=== PATIENT | female | born 1940 | race African-American/Black ===

== ENCOUNTER 2017-11-14 14:14 | Emergency (ER) | payer OTHER ==
[~2017-11-14] VITALS: Ht 165.1 cm; Wt 63.5 kg
[~2017-11-14 14:14] MED LIST: AMARYL2 MG; ATORVASTATIN CA10 MG; CARVEDILOL25 MG; CIPROFLOXACIN500 M1 PO; COZAAR100 MG; FLAGYL500 MG PO; NORCO 5-325 TA1 EACH PO; PHENERGAN 25 MG25 M1 PO; PHENERGAN50 MG RC; VESICARE10 M1
[2017-11-14] MEDS ORDERED: TESSALON PERLE100 MG PO (15:23)
[2017-11-14] MEDS ORDERED: AZITHROMYCIN 2250 MG PO (15:23)
== END 2017-11-14 15:36 | disposition home or self-care (01) ==
LOC: ER 14:14
DX: J18.9 Pneumonia, unspecified organism (principal); I10 Essential (primary) hypertension; E11.9 Type 2 diabetes mellitus without complications; F17.200 Nicotine dependence, unspecified, uncomplicated; Z90.710 Acquired absence of both cervix and uterus

== ENCOUNTER 2020-09-30 13:43 | Emergency (ER) | payer OTHER ==
[~2020-09-30] VITALS: Ht 165.1 cm; Wt 77.1 kg
[~2020-09-30 13:43] MED LIST changes: +AZITHROMYCIN 2250 MG PO; +TESSALON PERLE100 MG PO
[2020-09-30] MEDS ORDERED: MAGIC MOUTHWASH SWISH&SPIT (14:41)
[2020-09-30 14:58] VITALS: BP 183/68
== END 2020-09-30 15:10 | disposition home or self-care (01) ==
LOC: ER 13:43
DX: K13.79 Other lesions of oral mucosa (principal); I10 Essential (primary) hypertension; E11.9 Type 2 diabetes mellitus without complications; F17.220 Nicotine dependence, chewing tobacco, uncomplicated; Z86.73 Personal history of transient ischemic attack (TIA), and cerebral infarction without residual deficits; Z90.710 Acquired absence of both cervix and uterus; Z79.899 Other long term (current) drug therapy

== ENCOUNTER 2020-11-09 18:45 | Inpatient (IN) | payer OTHER ==
[~2020-11-09] VITALS: Ht 160 cm; Wt 77.6 kg
--- NOTE | ~2020-11-09 | EEG ---
[facility] [address] [place] [address] ELECTROENCEPHALOGRAM Name: LEONA VÁSQUEZ Room #: 217-P [facility] IN M.R.#: [id number] Admission: 11/09/20 Attend Phys: Patrice Hendrickson MD Discharge: Date of : 44 Report #: [id number] THIS REPORT FOR: //name// DATE OF SERVICE: 11/10/2020 This patient's EEG was done by placing the electrodes by standard 10-20 system of electrode placement. Both referential and sequential montages were used for recording. Background activity in this patient's EEG is difficult to determine because lot of artifact is present, but it appeared to be about 8-9 Hz and 30 microvolt. Photic stimulation is unremarkable. The patient became drowsy that is associated with bilateral slowing and vertex sharp waves. Throughout the record, no active epileptiform activity was noticed. IMPRESSION: This patient's EEG is intermixed with theta range slowing on both sides. That is a nonspecific finding, which can occur with encephalopathy, effect of psychotropic medication, dementia, etc. No active epileptiform activity was noticed during this record. EEG has a lot of artifact and therefore, impression is tentative as the patient is not able to cooperate. Thank you very much for this referral. By: [id number] José Miguel Stark MD /nt
[~2020-11-09 18:45] MED LIST changes: -AMARYL2 MG; +AMARYL2 MG PO; -ATORVASTATIN CA10 MG; +ATORVASTATIN CA10 MG PO; -COZAAR100 MG; +COZAAR100 MG PO; +MAGIC MOUTHWASH SWISH&SPIT
[2020-11-09 18:49] VITALS: BP 166/58
[2020-11-09] MEDS ORDERED: NORVASC 2.5 MG2.5 M1 PO (19:50)
[2020-11-09] MEDS ORDERED: MYRBETRIQ50 MG PO (19:51)
[2020-11-09] MEDS ORDERED: PROTONIX40 M2 PO (19:52)
[2020-11-09] MEDS ORDERED: HYDROCHLOROTHIA25 M2 PO (19:52)
[2020-11-09] MEDS ORDERED: GABAPENTIN (19:53)
[2020-11-09] MEDS ORDERED: TIZANIDINE HCL4 M1 PO (19:55)
[2020-11-09 20:51] LABS: ABSOLUTE NEUTROPHILS 4.4 thou/uL (1.4-8.2); BASOPHILS 1.1 % (0.0-2.0); EOSINOPHILS 2.3 % (0.0-3.0); HEMATOCRIT 28.1 % (37.0-47.0); LYMPHOCYTES 22.2 % (24.0-44.0); MCH 25.6 pg (26.0-34.0); MCHC 32.1 g/dL (28.0-37.0); MCV 79.7 fL (80.0-100.0); MONOCYTES 7.8 % (1.0-8.0); PLATELET COUNT 269 thou/uL (150-400); POLYS 66.6 % (36.0-66.0); RBC 3.52 mil/uL (4.20-5.00); RDW 13.6 % (10.5-14.5); WBC 6.7 thou/uL (4.0-11.0)
[2020-11-09 21:01] LABS: ANION GAP 9 mmol/L (7-16); BUN 26 mg/dL (7-18); CALCIUM 9.5 mg/dL (8.5-10.1); CHLORIDE 109 mmol/L (98-107); CO2 26 mmol/L (21-32); CREATININE 1.4 mg/dL (0.6-1.0); GLUCOSE 164 mg/dL (74-106); POTASSIUM 4.3 mmol/L (3.5-5.1); SODIUM 144 mmol/L (136-145)
[2020-11-09 21:07] LABS: PROTIME 10.6 Seconds (9.3-11.4)
[2020-11-09 21:11] LABS: TROPONIN-I <0.06 ng/mL (<0.06)
[2020-11-09 21:39] LABS: URINE BILIRUBIN NEGATIVE (Negative); URINE BLOOD NEGATIVE (Negative); URINE CLARITY CLEAR; URINE COLOR YELLOW; URINE GLUCOSE-RANDOM* NEGATIVE (Negative); URINE KETONES NEGATIVE (Negative); URINE LEUKOCYTES-REFLEX NEGATIVE (Negative); URINE NITRITE-REFLEX NEGATIVE (Negative); URINE PROTEIN (DIPSTICK) NEGATIVE (Negative); URINE SPECIFIC GRAVITY 1.025 (1.005-1.035); URINE UROBILINOGEN 0.2 E.U./dl (0.2-1.0)
[2020-11-10 06:09] LABS: HEMATOCRIT 26.4 % (37.0-47.0); HEMOGLOBIN 8.3 gm/dL (12.0-15.0); MCH 25.1 pg (26.0-34.0); MCHC 31.6 g/dL (28.0-37.0); MCV 79.5 fL (80.0-100.0); RBC 3.32 mil/uL (4.20-5.00); RDW 13.4 % (10.5-14.5); WBC 5.4 thou/uL (4.0-11.0)
[2020-11-10 06:32] LABS: ANION GAP 7 mmol/L (7-16); BUN 19 mg/dL (7-18); CALCIUM 9.1 mg/dL (8.5-10.1); CHLORIDE 109 mmol/L (98-107); CHOLESTEROL 158 mg/dL (<200); CO2 26 mmol/L (21-32); CREATININE 1.3 mg/dL (0.6-1.0); GLUCOSE 193 mg/dL (74-106); HDL CHOLESTEROL 59 mg/dL (>40); LDL CHOLESTEROL 84 mg/dL (<100); SERUM ASSESSMENT Clear; SODIUM 142 mmol/L (136-145); TC:HDL 2.7 Ratio (Not establshd); TRIGLYCERIDE 75 mg/dL (<150); VLDL 15 mg/dL (<40)
--- NOTE | 2020-11-10 07:17 | EKG ---
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: : 1940 Requested By: Diane Sullivan Order Number: [id number] : Derrick Henderson Measurements Intervals [place] Rate: 61 P: 54 OR: 240 QRS: -24 QRSD: 92 T: 87 QT: 446 QTc: 450 Interpretive Statements Sinus rhythm Prolonged OR interval Borderline left axis deviation No previous ECG available for comparison Electronically Signed On 11-10-2020 7:16:59 COUNTY AGENT by Derrick Henderson [email or web address] <ELECTRONICALLY SIGNED> By: Derrick Henderson MD, [facility] 11/10/20 0716 1927 26 Derrick Henderson MD, FACC /EPI
--- NOTE | 2020-11-10 08:00 | NUR ---
SPOKE WITH DAUGHTER ROSEANN AND CONFIRMED INFORMATION FOR MRI MAHAMED
--- NOTE | 2020-11-10 09:49 | NUR ---
RETURNED FROM MRI, DRAFTER MARINE AT BEDSIDE TO PERFORM TEST
--- NOTE | 2020-11-10 10:56 | NUR ---
PT ASSISTED TO BEDSIDE COMMODE WITH STB ASSIST. PT ABLE TO USE OWN STRENGTH TO RETURN TO AMBUALTE TO BSC & RETURN TO BED.
--- NOTE | 2020-11-10 14:30 | NUR ---
PT GOT SELF OUT OF BED, DRESSED SELF COMPLETELY AND TOOK IV ACCESS OUT. DAUGHTER ARRIVED AT BEDSIDE. PT STATES SHE IS NOT STAYING. VERBAL RE-DIRECTION BY STAFF AND DAUGHTER CALM. BUT WILL NOT EAT OR GET INTO HOSPITAL GOWN.
--- NOTE | 2020-11-10 14:58 | NUR ---
80 year old female with a past medical history of stroke, hypertension, hyperlipidemia, and diabetes type 2 presents to the ED with BLE weakness. She was assessed to be Alert x1, aphasic with slurred speech and eft facial droop. The patient has been admitted to the hospitalist service with consult to neurology for above reason as well as LIVE, Metabolic encephalopathy verses current admitting symptoms, Right arm pain/weakness, DMI!, hx of stroke HTN, HLD and Anemia with Hgb of 9.0. MRA-[place] [facility] [place], MRI Head, XR shoulder, XR chest and CT without contrast did not reveal acute issue (s). The patient is assessed in the record as A&O x1 . The patients Nephew is listed as next of kin at [phone]. However the patient's daughter accompanied patient in the ED. The daughter's information is Juanita Escobedo and her number is [phone]: The daughter states the patient [place] [facility] [place] [address] [facility]. Introduced the role of CM to daughter, daughter expressed need that patient may need SNF to LTC services upon discharge. Explained to daughter upon medical assessments along with therapy evaluations, CM will be in touch for discharge planning needs. Daughter reiterated that she was the direct contact and next of kin. Have notified Registration for correction to the face sheet.
--- NOTE | 2020-11-10 15:15 | NUR ---
DAUGHTER LEFT, PT SITTING IN ROOM CHAIR, DRESSED. DR JIMÉNEZ RETURNED CALL IN REGARDS TO BEHAVIOR REFUSING IV, REFUSING MONITORS, BP. STATES WILL LOOK AT CHART AND RE-ASSESS
[2020-11-10 17:07] VITALS: BP 176/68
[2020-11-10 17:30] VITALS: BP 176/68
[2020-11-10 18:00] VITALS: BP 188/56
[2020-11-10 18:20] VITALS: BP 188/56
[2020-11-10 19:15] VITALS: BP 167/65
--- NOTE | 2020-11-10 20:06 | NUR ---
PT CARE ASSUMED AT 1800. ASSESSMENTS CHARTED. PT HAS NO IV AND REFUSES PLACEMENT. PT IS VERY PARANOID. PT REFUSES FOOD. PT ATTEMPTED ELOPEMENT IN TRANSFER FROM ER TO CCU. SECURITY ASSISTED. POOR HISTORIAN, WILL NOT VOLUNTEER INFORMATION EASILY. CALLED PT'S DAUGHTER, NO ANSWER.
[2020-11-11 00:06] LABS: GLYCOHEMOGLOBIN (HGB A1C) 7.3 % (4.8-5.6)
[2020-11-11 03:22] VITALS: BP 149/73
--- NOTE | 2020-11-11 07:19 | EKG ---
[address] [place] [address] ELECTROCARDIOGRAM REPORT Name: DAWN VÁSQUEZJAYLIN Petit Room #: 217- ADM IN M.R.#: [id number] Admission: 11/09/20 Attend Phys: Patrice Hendrickson MD Discharge: Date of : 44 Report #: [id number] [facility] Test Date: 2020-11-11 Test Time: 03:31:29 Pat Name: LEONA VÁSQUEZ Department: Room: 217 Gender: F Application Helper: CHERYL : 1940 Requested By: Shital Parker Order Number: [id number] MD: Derrick Henderson Measurements Intervals [place] Rate: 74 P: -27 UT: 387 QRS: -13 QRSD: 93 T: 87 QT: 384 QTc: 426 Interpretive Statements Second degree AV block, Mobitz II Borderline low voltage, extremity leads Compared to ECG 11/09/2020 19:27:40 Second-degree AV block, Mobitz type I (Wenckebach) now present Sinus rhythm no longer present First degree AV block no longer present Electronically Signed On 11-11-2020 7:18:50 [employer]ID [employer] PLANT OPERATOR by Derrick Henderson [email or web address] <ELECTRONICALLY SIGNED> By: Derrick Henderson MD, [facility] 11/11/20 0718 033 0 Derrick Henderson MD, [facility] /EPI
--- NOTE | 2020-11-11 07:22 | NUR ---
ADMITTED TO THE FLOOR AROUND 11/11 AROUND 1800; EDUCATED ON FALL PRECAUTIONS; ALERT/CONFUSED; ASSIST TO BSC WITH BRIEF D/T URINARY URGENCY; ST/SB/SR/1AVB ON THE MONITOR; EKG COMPLETED WITH RESULT 2AVB, TYPE II D/T EXTREME MARVIN TO THE 30s; IV RESTARTED IN LEFT HAND D/T PATIENT D/C OF IV; PLAN IS FOR CARDIO CONSULT AND POSSIBLE D/C TO SNF D/T POSSIBLE ONSET OF DEMENTIA; WILL CONTINUE TO MONITOR.
[2020-11-11 08:10] VITALS: BP 141/66
[2020-11-11 11:21] VITALS: BP 141/66
--- NOTE | 2020-11-11 11:30 | NUR ---
Case discussed with the care team. Pt did well with therapy. Dc planning options reivewed with dtr in law Juanita. She indicates family is going to take the pt home with them this afternoon so she will have 24hr supervision. They are interested in info on memory care units/ltc for future reference but do not wish to pursue placement at this time. Pt alert and pleasant this morning. Wanting to go home. Juanita will be here at around 3:30 today and bringing in a dpoa document should the pt wish to have it notorized. Ruben Campoverde here to visit with the pt this am. He will check at 3:30 to see if the pt is clear enough to notorize. Juanita indicates her address is [address], [place] and this will be where she is staying. They are interested in HH services and deny agency preference. Dc inventory control planner to send out referral based on ins options for [facility]. Care team updated. DC plan is home with family and hh. no dme needed. The attending and care staff aware of the dc plan for this afternoon.
[2020-11-11] MEDS ORDERED: SEROQUEL 25 MG25 M1 PO (12:26)
[2020-11-11] MEDS ORDERED: ADULT LOW DOSE81 MG PO (12:26)
--- NOTE | 2020-11-11 14:40 | NUR ---
RECEIVED PT'S CARE AROUND 0710; PT. ON BED; RESTING WITH EYES CLOSED; EQUAL CHEST RISING NOTICED; DURING AM ASSESSMENT PT. ALERT TO PERSON; UPSET BECAUSE OF MEDICATIONS; CONFUSED; ST. "I DO NOT TAKE THESE MEDICATIONS"; EDUCATED ABOUT DAILY MEDICATION; AGREED TO TAKE MEDICATIONS; REFUSED INSULIN AT NOON; UPSET DURING THE AFTERNOON; ST. "I AM BEING PICK"; NOTIFIED OF GOING HOME WITH DAUGHTER IN LAW; ST. UNDERSTANDING; RECEIVED CALL FROM [facility] IN LAW; UPDATED ABOUT POC AND PT'S STATUS; ST. UNDERSTANDING; EDUCATED ABOUT FALL PRECAUTIONS; NEEDS TO BE REMAINED; ASSESSMENT CHARGED; FOLLOWING POC; WILL WORK ON D/C PAPERS;
--- NOTE | 2020-11-11 14:43 | NUR ---
FAXED REFERRAL TO [facility] THEY DECLINED REFERRAL FEEL PT IS NOT HH APPROPRIATE. DP TO FOLLOW.
[2020-11-11 14:45] VITALS: BP 141/66
--- NOTE | 2020-11-11 14:56 | NUR ---
FAXED HOME HEALTH REFERRAL TO [facility] AND [facility]. CONFIRMED WITH GAIL/LISA AT [facility] THAT THEY CAN ACCEPT PATIENT. FAXED DISCHARGE ORDERS/SUMMARY WITH UPDATED FAX SHEET. PATIENT WILL DISCHARGE TO HER DAUGHTER'S HOME. ROSEANN MOSQUEDA, [address] [facility] [place] [address]. ROSEANN'S PHONE [phone].
[2020-11-11 15:02] VITALS: BP 141/66
== END 2020-11-11 16:41 | disposition home health service (06) | DRG 682 ==
LOC: ER 18:45 → EROBS 20:56 → 2N 20:56
PROVIDERS: Emergency Medicine; Nurse Practitioner Family; Psychiatry & Neurology Neurology; ADMIT Internal Medicine; ATTEND Internal Medicine
DX: N17.0 Acute kidney failure with tubular necrosis (principal); G93.41 Metabolic encephalopathy; E72.20 Disorder of urea cycle metabolism, unspecified; Z90.710 Acquired absence of both cervix and uterus; E78.5 Hyperlipidemia, unspecified; F17.220 Nicotine dependence, chewing tobacco, uncomplicated; E86.0 Dehydration; I12.9 Hypertensive chronic kidney disease with stage 1 through stage 4 chronic kidney disease, or unspecified chronic kidney disease; D63.8 Anemia in other chronic diseases classified elsewhere; E11.22 Type 2 diabetes mellitus with diabetic chronic kidney disease; N18.9 Chronic kidney disease, unspecified; Z66 Do not resuscitate; Z79.899 Other long term (current) drug therapy; Z79.82 Long term (current) use of aspirin; I69.320 Aphasia following cerebral infarction; I69.392 Facial weakness following cerebral infarction
CPT/HCPCS: 10081